=== PATIENT | female | born 1945 | race American Indian/Alaskan Native ===

== ENCOUNTER 2017-04-29 09:40 | Outpatient (CLI) | payer MEDICARE, OTHER ==
--- NOTE | 2017-05-02 10:13 | Mammography Report ---
Screening mammogram: Routine views are compared to prior exams dating back to 2014. There is a focal architectural distortion in the superior right breast consistent with prior surgery. The breast pattern otherwise is generally symmetric and unremarkable. There is an intermediate density fibroglandular pattern. No new findings. CAD used. Impression: Stable breast pattern. No suspicious findings. Recommendation: Annual mammogram followup. BI-RADS CATEGORY: 1 = Negative ACR BI-RADS MAMMOGRAPHIC CODES: 0 = Needs additional imaging evaluation; 1 = Negative; 2 = Benign; 3 = Probably benign; 4 = Suspicious; 5 = Malignant; 6 = Known biopsy-proven malignancy COMMENT: 1. Dense breast tissue, i.e., adenosis, fibrocystic changes, etc., may obscure an underlying neoplasm. 2. Approximately 10% of cancers are not detected with mammography. 3. A negative mammography report should not delay biopsy if a clinically suspicious mass is present.
== END 2017-04-29 09:41 | disposition home or self-care (01) ==
LOC: SPVWC 09:40
PROVIDERS: ATTEND Internal Medicine Hematology & Oncology
DX: Z12.31 Encounter for screening mammogram for malignant neoplasm of breast (principal); I10 Essential (primary) hypertension; E11.9 Type 2 diabetes mellitus without complications; E78.00 Pure hypercholesterolemia, unspecified
CPT/HCPCS: 77067; G0202

== ENCOUNTER 2019-06-04 11:16 | Outpatient (CLI) | payer MEDICARE, OTHER ==
--- NOTE | 2019-06-04 13:13 | Ultrasound Report ---
BILATERAL DIGITAL DIAGNOSTIC MAMMOGRAM WITH CAD -- 06/04/2019 LEFT LIMITED BREAST ULTRASOUND INDICATION: Left axillary and left superior breast palpable findings, patient due for annual bilatera l mammogram. TECHNIQUE: Digital bilateral mammographic imaging was performed. Limited ultrasound was performed. T his examination was interpreted with the benefit of Computer-Aided Detection (CAD) analysis. COMPARISON: 05/04/2018, 04/27/2017, 04/27/2016, 04/18/2015. FINDINGS: Breast Density: There are scattered areas of fibroglandular density. Stable mild area of distortion in the right superior breast at site of prior surgery. No new suspicio us findings in the left breast. No mammographic correlate to explain reported palpable finding in the left superior breast or axilla. Ultrasound Findings: Targeted ultrasound evaluation was performed of the area of interest. Targeted ultrasound of the left breast at 11:30 position, 8 cm from the nipple, was performed to evaluate the site of reported palpable finding. There is a partially circumscribed oval 6 x 5 x 3 mm lesion locat ed within the skin. Additionally, within the left axilla there is a 7 x 7 x 4 mm hypoechoic lesion lo cated within the skin. These would correspond to the palpable findings which the patient states have been present for over 2 years. No suspicious findings within the breast parenchyma itself. No evidenc e of breast malignancy. IMPRESSION: No evidence of breast malignancy. The areas of palpable findings in the left superior breast and left axilla correspond with skin lesions. Clinical management is recommended. Routine screening mammogram in one year would be indicated, unless imaging is clinically indicated sooner. BI-RADS Category 2: Benign. Recommend routine screening mammography in one year A "normal" or negative report should not discourage follow up or biopsy of a clinically significant f inding. A written summary of these findings will be mailed to the patient. The patient will be entered into a mammography reporting system which will generate a reminder letter for the patient's next appointmen t at the appropriate interval. FURTHER INFORMATION: According to the [employer], yearly mammograms are recommend ed starting at age 40 and continuing as long as a woman is in good health. Breast MRI is recommended for women with an approximately 20-25% or greater lifetime risk of breast cancer, including women wi th a strong family history of breast or ovarian cancer and women who have been treated for Hodgkin's disease. Signer Name: Dominic Keenan MD Signed: 06/04/2019 1:08 PM Workstation Name: [id number]
== END 2019-06-04 11:17 | disposition home or self-care (01) ==
LOC: SPVWC 11:16
PROVIDERS: ATTEND Internal Medicine Hematology & Oncology
DX: N63.42 Unspecified lump in left breast, subareolar (principal); N64.89 Other specified disorders of breast
CPT/HCPCS: 77066